=== PATIENT | female | born 1960 ===

== ENCOUNTER 2017-09-05 01:09 | Emergency (ER) | payer SELFPAY ==
[2017-09-05 01:19] VITALS: BMI 21.9
[2017-09-05 01:22] VITALS: BP 122/91; PULSE 66; RESP 18; TEMP 97.6; O2SAT 100
--- NOTE | 2017-09-05 01:35 | ED PDOC ---
Arrival/HPI - General Historian: Patient EM Caveat: Intoxicated - History of Present Illness Time/Duration: Prior to Arrival - General Time Seen by Provider: 09/05/17 01:16 - History of Present Illness Narrative History of Present Illness (Text): 09/05/17 01:31 56yo F with no stated PMH presents by EMT after being found intoxicated. Pt is Swedish speaking only, and translation was provided by ED staff. Pt is intoxicated and unable to provide history. only states that we took her beer and that she needs to go to work at 8AM and cannot stay here. (Joshua Cortez) Past Medical History - Provider Review Nursing Documentation Reviewed: Yes - Past History Past History: No Previous - Past Medical History Past Medical History: No Previous - Psychiatric Hx Anxiety: No Hx Substance Use: No - Anesthesia Hx Anesthesia: No Family/Social History - Physician Review Nursing Documentation Reviewed: Yes Family/Social History: No Known Family HX Smoking Status: Never Smoked Hx Alcohol Use: No Hx Substance Use: No Allergies/Home Meds Allergies/Adverse Reactions: Allergies No Known Allergies Allergy (Verified 09/05/17 01:19) Home Medications: Home Meds Medication Instructions Recorded Confirmed No Known Home Med 09/05/17 09/05/17 Review of Systems - Physician Review All systems were reviewed & negative as marked: Yes - Review of Systems Systems not reviewed;Unavailable: Uncooperative Neurological: absent: Headache, Dizziness Physical Exam - Physical Exam Physical Exam Limitations: Intoxication, Uncooperative Vital Signs Reviewed: Yes Appearance: Positive for: Well-Appearing Pain Distress: None Mental Status: Positive for: Agitated - Systems Exam Head: Present: Normocephalic, Abrasion (mild abrasion on R fronto-temporal skin) Pupils: Present: PERRL Extroacular Muscles: Present: EOMI Mouth: Present: Moist Mucous Membranes Neck: Present: Normal Range of Motion Respiratory/Chest: Present: Clear to Auscultation, Good Air Exchange Cardiovascular: Present: Regular Rate and Rhythm, Normal S1, S2 Abdomen: No: Tenderness, Distention Back: Present: Normal Inspection Upper Extremity: Present: Normal Inspection Lower Extremity: Present: Normal Inspection Neurological: Present: CN II-XII Intact, Speech Normal, Motor Func Grossly Intact, Normal Sensory Function, Normal Cerebellar Funct, Gait Normal Skin: Present: Warm, Dry Psychiatric: Present: Alert, Agitated, Intoxicated Vital Signs Temp Pulse Resp BP Pulse Ox 09/05/17 01:21 97.6 F 66 18 122/91 H 100 Medical Decision Making Re-evaluation Time: 02:24 Reassessment Condition: Re-examined, Unchanged ED Course and Treatment: Pt seen and evaluated with medical technician. Aware and agree with HPI, clinical findings, plan, and management. 09/05/17 02:24 Pt awake, alert, ambulating with steady gait in ER. In no acute distress, clinically sober. Pt stable for d/c. (Gabriel Avila) 09/05/17 01:42 Impression: 56yo F presenting with ETOH intoxication Plan: - CT Head 09/05/17 02:24 Reassessment: pt remains uncooperative and refused CT scan after being brought to CT suit. pt states that she has work tomorrow and cannot miss it and is requesting to be go home. pt is not slurring her words and is ambulating well without assistance. pt is stable medically and currently not going through any withdrawals. pt is refusing medical evaluation and treatment, and has shown that she has capacity to make decisions. (Joshua Cortez) - RAD Interpretation Radiology Orders: 09/05/17 01:36 HEAD W/O CONTRAST [CT] Stat Disposition/Present on Arrival - Present on Arrival Any Indicators Present on Arrival: No History of DVT/PE: No History of Uncontrolled Diabetes: No Urinary Catheter: No History of Decub. Ulcer: No History Surgical Site Infection Following: None - Disposition Have Diagnosis and Disposition been Completed?: Yes Disposition Time: 02:27 Patient Plan: Discharge - Disposition Diagnosis: Alcohol abuse Disposition: HOME/ ROUTINE Patient Problems: Current Active Problems Problem Status Onset Alcohol abuse Acute Condition: FAIR Discharge Instructions (ExitCare): Abuse of Alcohol (ED) Print Language: SERBIAN Referrals: PCP,NO [Primary Care Provider] - Follow up with primary Forms: [employer] (Azeri)
== END 2017-09-05 02:02 | disposition home or self-care (01) ==
LOC: ED 01:09
DX: F10.129 Alcohol abuse with intoxication, unspecified (principal)